=== PATIENT | male | born 1955 | race Caucasian/White ===

== ENCOUNTER → 2020-06-04 | Day surgery (SDC) | payer OTHER ==
[~2020-06-04] MED LIST: LIPITOR40 MG PO; LOSARTAN POTASS50 MG PO
== END | disposition home or self-care (01) ==
LOC: FAS 12:37
DX: H26.9 Unspecified cataract (principal); E78.00 Pure hypercholesterolemia, unspecified
CPT/HCPCS: J2250; V2632

== ENCOUNTER → 2020-07-02 | Day surgery (SDC) | payer OTHER | END | disposition home or self-care (01) | LOC: FAS 12:00 | DX: H25.813 Combined forms of age-related cataract, bilateral (principal); I10 Essential (primary) hypertension; Z85.828 Personal history of other malignant neoplasm of skin; Z20.822 Contact with and (suspected) exposure to COVID-19 | CPT/HCPCS: J2250; V2632 ==